=== PATIENT | male | born 1945 | race Caucasian/White ===

== ENCOUNTER 2022-02-26 15:36 | Emergency (ER) | payer OTHER ==
--- NOTE | 2022-02-26 16:01 | RAD REPORT ---
EXAM DESCRIPTION: CT - Ct Stroke Brain Wo Cont - 02/26/2022 3:54 pm CLINICAL HISTORY: posible stroke COMPARISON: No comparisons TECHNIQUE: All CT scans are performed using dose optimization technique as appropriate and may inclu de automated exposure control or mA/KV adjustment according to patient size. FINDINGS: No intracranial hemorrhage, hydrocephalus or extra-axial fluid collection.No areas of brai n edema or evidence of midline shift. Bilateral maxillary sinus thickening. Ethmoid air cell thickening. The calvarium is intact. IMPRESSION: No acute intracranial abnormality. Conveyed to Dr. Small by Dr. Pena at 1554 on 02/26/22
[2022-02-26 16:18] LABS: Hematocrit 34.4 % (39.6-49.0); Lymphocytes % 22.5 % (15.3-44.8); MCV 92.3 fL (80-100); MPV 7.1 fL (7.6-11.3); RBC Red Blood Cell Count 3.73 M/uL (4.33-5.43)
[2022-02-26 16:19] LABS: Protime INR 0.95
[2022-02-26] MEDS ORDERED: FAMOTIDINE 20 MG/2 ML VIAL IV ONE (16:25)
[2022-02-26] MEDS ORDERED: NA CHLORIDE 0.9% 1,000 ML ONE (16:25)
[2022-02-26] MEDS ORDERED: TENECTEPLASE 50 MG/10 ML VIAL IV ONE (16:25)
[2022-02-26] MEDS ORDERED: FOLIC ACID 5 MG/ML VIAL ONE (16:26)
[2022-02-26 16:35] LABS: ALT/SGPT 29 U/L (12-78); AST/SGOT 16 U/L (15-37); Albumin 3.1 g/dL (3.4-5.0); Alkaline Phosphatase 48 U/L (45-117); BUN Blood Urea Nitrogen 15 mg/dL (7-18); Bicarbonate 26 mmol/L (21-32); Bilirubin Total 0.3 mg/dL (0.2-1.0); Glomerular Filtration Rate 88 ml/min (=/>90); Glucose Level 115 mg/dL (74-106); Magnesium 2.1 mg/dL (1.8-2.4); NT PRO-BNP 90 pg/mL (<450); Potassium 3.8 mmol/L (3.5-5.1); Protein, Total 6.2 g/dL (6.4-8.2); Sodium Level 138 mmol/L (136-145); Troponin High Sensitivity 10.9 pg/mL (<58.9)
[2022-02-26 16:41] LABS: Bilirubin Direct < 0.1 mg/dL (0-0.2)
--- NOTE | 2022-02-26 16:48 | ER ---
Nurse's Notes [facility] Name: Osmany Corey Age: 76 yrs Sex: Male : 1945 Arrival Date: 02/26/2022 Time: 15:40 Bed 8 Private MD: Diagnosis: Cerebral infarction, unspecified;Aphasia Presentation: 02/26 15:48 Chief complaint: Patient states: about 3pm today the left side of my face and lips felt tw2 different. i felt like i couldn't wink at first and that i was going to drool but i didnt. Coronavirus screen: At this time, the client does not indicate any symptoms associated with coronavirus-19. Ebola Screen: Patient denies travel to an Ebola-affected area in the 21 days before illness onset. No acute neurological deficit is noted. Pre-hospital glucose is not applicable to this patient. Initial Sepsis Screen: Does the patient meet any 2 criteria? No. Patient's initial sepsis screen is negative. Does the patient have a suspected source of infection? No. Patient's initial sepsis screen is negative. Risk Assessment: Do you want to hurt yourself or someone else? Patient reports no desire to harm self or others. Note pt taken to cat scan at this time via w/c with TEODORO Brown. Onset of symptoms was February 26, 2022. 15:48 Acuity: JOSIE 2 tw2 15:48 Method Of Arrival: Ambulatory tw2 Triage Assessment: 15:48 The onset of the patients symptoms was February 26, 2022 at 15:00. General: Appears in tw2 no apparent distress. Behavior is calm, cooperative, appropriate for age. Neuro: Reports numbness in left side of face since 1500 today. 15:48 Musculoskeletal:. tw2 15:50 Pain: Denies pain. tw2 15:51 Neuro:. tw2 Stroke Activation: Symptom onset < 3 hours Physician: Stroke Attending; Name: ; Notified At: ; Arrived At: Physician: Chief Stroke Resident; Name: ; Notified At: ; Arrived At: Physician: Stroke Resident; Name: ; Notified At: ; Arrived At: Physician: ED Attending; Name: ; Notified At: ; Arrived At: Physician: ED Resident; Name: ; Notified At: ; Arrived At: Historical: - Allergies: 15:45 No Known Allergies; tw2 - PMHx: 15:53 back pain; shoulder pain; tw2 - PSHx: 15:53 Tonsillectomy; tw2 - Immunization history:: Client reports having NOT received the Covid vaccine. - Social history:: Smoking status: Patient denies any tobacco usage or history of. - Family history:: not pertinent. Screenin:53 Abuse screen: Denies threats or abuse. Nutritional screening: No deficits noted. tw2 Tuberculosis screening: No symptoms or risk factors identified. Fall Risk Secondary diagnosis (15 points) impaired mobility. 15:59 Patient has been NPO before screening. The patient is alert, able to follow commands. tw2 The patient does not exhibit slurred or garbled speech The patient is not exhibiting difficulty speaking. The patient does not exhibit difficulty understanding words. The patient is able to swallow own secretions with no drooling or need for suction. Patient tolerated one teaspoon of water. No drooling, immediate coughing, gurgling, or clearing of the throat was noted. The patient tolerated 90mL of water. No drooling, immediate coughing, gurgling, or clearing of the throat was noted. The patient passed the bedside swallow screening. Oral medications may be given as ordered. Contact Physician for further diet orders. Provider notified of bedside swallow screening results: Melquiaeds Small MD. Assessment: 15:45 Reassessment: pt taken to CT. mb9 15:45 General: Appears in no apparent distress. comfortable, Behavior is calm, cooperative, mb9 appropriate for age. Pain: Denies pain. Neuro: Level of Consciousness is awake, alert, obeys commands, Oriented to person, place, time, situation, Appropriate for age Reservations Clerk are equal bilaterally Full function Gait is unsteady, Speech is normal, Facial symmetry appears normal, Pupils are PERRLA, Intact Reports numbness in face and left arm slurred speech. 15:45 Cardiovascular: Heart tones S1 S2 present Capillary refill < 3 seconds Pulses are all mb9 present. Rhythm is sinus bradycardia. Cardiovascular: Rhythm is regular. Respiratory: Respiratory: Airway is patent Respiratory effort is even, unlabored, Respiratory pattern is regular, symmetrical, Breath sounds are clear bilaterally. GI: Abdomen is flat, Bowel sounds present X 4 quads. : No signs and/or symptoms were reported regarding the genitourinary system. EENT: No signs and/or symptoms were reported regarding the EENT system. Derm: Skin is pink, warm \T\ dry. Musculoskeletal: Range of motion: intact in all extremities. 15:51 VAN Scoring: Arm Drift: Patients demonstrates NO arm weakness. Patient is VAN Negative. tw2 Visual Disturbance: No visual disturbance noted. 15:53 Musculoskeletal:. tw2 15:55 Neuro: Level of Consciousness is awake, alert, obeys commands, Oriented to person, mb9 place, time, situation, Appropriate for age Reservations Clerk are weak on left Gait is unsteady, Speech is slurred, lower face drip on left side. Pupils are PERRLA, Tingling in left arm Numbness in left arm. Cardiovascular: Heart tones S1 S2 present Pulses are all present. Rhythm is regular. Respiratory: Airway is patent Respiratory effort is even, unlabored, Respiratory pattern is regular, symmetrical, Breath sounds are clear bilaterally. GI:. Derm: Skin is pink, warm \T\ dry. Musculoskeletal: Range of motion: intact in all extremities. 16:00 Patient has been NPO before screening. The patient is alert, and able to follow tw2 commands. The patient does not exhibit slurred or garbled speech. The patient is not exhibiting difficulty speaking. The patient does not exhibit difficulty understanding words. The patient is able to swallow own secretions with no drooling or need for suction. Patient tolerated one teaspoon of water. No drooling, immediate coughing, gurgling, or clearing of the throat was noted. The patient tolerated 90mL of water. No drooling, immediate coughing, gurgling, or clearing of the throat was noted. The patient passed the bedside swallow screening. Oral medications may be given as ordered. Contact Physician for further diet orders. Provider notified of bedside swallow screening results: Melquiades Small MD. 16:10 TNKase (Tenecteplase) Screening: Indications: No evidence of intracranial hemorrhage or mb9 CT of head and no evidence of peripheral hemorrhage or recent CVA: Yes. 16:35 TNKase (Tenecteplase) Screening: Indications: Consent for thrombolytic therapy: Yes. mb9 16:35 Reassessment: see pt's chart for TNK consent administration, signed by patient. . aa5 17:00 Reassessment: pt taken to CT. mb9 17:22 Reassessment: pt back from CT. mb9 17:30 Reassessment: pt reports pressure behind eyes bilaterally. Notified Dr. Small of pts mb9 complaint. 17:30 General: Appears comfortable. Pain: Denies pain. Neuro: Level of Consciousness is mb9 awake, alert, obeys commands, Oriented to person, place, time, situation, Appropriate for age Reservations Clerk are equal bilaterally Full function Speech is slurred, Facial symmetry appears normal, Pupils are PERRLA, Tingling in left arm Numbness in left jaw. Cardiovascular: Heart tones S1 S2 present Rhythm is sinus bradycardia. Respiratory: Airway is patent Respiratory effort is even, unlabored, Respiratory pattern is regular, symmetrical. GI:. Derm: Skin is pink, warm \T\ dry. 17:45 Pain: Denies pain. Neuro: Level of Consciousness is awake, alert, obeys commands, mb9 Oriented to person, place, time, situation, Appropriate for age Reservations Clerk are equal bilaterally Full function Speech is slurred, Facial symmetry appears normal, Pupils are PERRLA, Intact Reports numbness in left arm. Cardiovascular: Heart tones S1 S2 present Rhythm is regular. Respiratory: Airway is patent Respiratory effort is even, unlabored, Respiratory pattern is regular, symmetrical, Breath sounds are clear bilaterally. Derm: Skin is pink, warm \T\ dry. 18:00 Pain: Denies pain. Neuro: Level of Consciousness is awake, alert, obeys commands, mb9 Oriented to person, place, time, situation, Appropriate for age Reservations Clerk are equal bilaterally Full function Speech is normal, Facial symmetry appears normal, Pupils are PERRLA, Intact Reports numbness in left arm and tingling . Cardiovascular: Rhythm is regular. Respiratory: Airway is patent Respiratory effort is even, unlabored, Respiratory pattern is regular, symmetrical. Derm: Skin is pink, warm \T\ dry. 18:15 Reassessment: pts and sister at bedside. Pain: Denies pain. Neuro: Level of mb9 Consciousness is awake, alert, obeys commands, Oriented to person, place, time, situation, Appropriate for age Reservations Clerk are equal bilaterally Full function Speech is normal, Facial symmetry appears normal, Pupils are PERRLA, Intact Reports numbness in left arm. Cardiovascular:. Cardiovascular: Heart tones S1 S2 present Rhythm is regular. Respiratory: Airway is patent Respiratory effort is even, unlabored, Respiratory pattern is regular, symmetrical. Derm: Skin is pink, warm \T\ dry. 18:30 Reassessment: pts sister and at bedside. General: Appears in no apparent distress. mb9 comfortable, Behavior is calm, cooperative, appropriate for age. Pain: Denies pain. Neuro: Level of Consciousness is awake, alert, obeys commands, Oriented to person, place, time, situation, Appropriate for age Reservations Clerk are equal bilaterally Full function Speech is normal, Facial symmetry appears normal, Pupils are PERRLA, Intact Reports numbness in left arm. Cardiovascular: Rhythm is regular. Respiratory: Airway is patent Respiratory effort is even, unlabored, Respiratory pattern is regular, symmetrical. Derm: Skin is pink, warm \T\ dry. 18:45 General: Appears in no apparent distress. comfortable, Behavior is calm, cooperative, mb9 appropriate for age. Pain: Denies pain. Neuro: Level of Consciousness is awake, alert, obeys commands, Oriented to person, place, time, situation, Appropriate for age Reservations Clerk are equal bilaterally Full function Speech is normal, Facial symmetry appears normal, Pupils are PERRLA, Intact Reports slight numbness in the left upper arm. Cardiovascular: Rhythm is regular. Respiratory: Airway is patent Respiratory effort is even, unlabored, Respiratory pattern is regular, symmetrical. Derm: Skin is pink, warm \T\ dry. 19:00 Pain: Denies pain. Neuro: Level of Consciousness is awake, alert, obeys commands, mb9 Oriented to person, place, time, situation, Appropriate for age Reservations Clerk are equal bilaterally Full function Speech is normal, Facial symmetry appears normal, Pupils are PERRLA, Intact Reports slight tingling in the left lower arm. Cardiovascular: Rhythm is regular. Respiratory: Airway is patent Respiratory effort is even, unlabored, Respiratory pattern is regular, symmetrical. Derm: Skin is pink, warm \T\ dry. Vital Signs: 15:48 BP 132 / 71; Pulse 67; Resp 17; Temp 98.2(TE); Pulse Ox 100% on R/A; Weight 81.65 kg tw2 (R); Height 5 ft. 9 in. (175.26 cm); 16:00 BP 132 / 70; Pulse 61; Resp 16; Pulse Ox 100% ; mb9 16:18 BP 147 / 79; Pulse 65; Resp 13; Pulse Ox 99% on R/A; mb9 16:36 BP 147 / 79; Pulse 60; Resp 11; Pulse Ox 100% on R/A; mb9 16:45 BP 145 / 59; Pulse 58; Resp 14; Pulse Ox 100% ; mb9 17:00 BP 149 / 75; Pulse 58; Resp 12; Pulse Ox 100% on R/A; mb9 17:30 BP 147 / 79; Pulse 77; Resp 15; Pulse Ox 100% on R/A; mb9 17:45 BP 155 / 75; Pulse 63; Resp 20; Pulse Ox 100% ; mb9 18:00 BP 165 / 80; Pulse 64; Resp 20; Pulse Ox 100% ; mb9 18:15 BP 161 / 80; Pulse 63; Resp 18; Pulse Ox 100% on R/A; mb9 18:30 BP 154 / 77; Pulse 63; Resp 15; Pulse Ox 100% ; mb9 18:45 BP 160 / 90; Pulse 63; Resp 14; Pulse Ox 100% on R/A; mb9 19:00 BP 157 / 94; Pulse 68; Pulse Ox 98% on R/A; mb9 15:48 Body Mass Index 26.58 (81.65 kg, 175.26 cm) tw2 NIH Stroke Scale Scores: 15:45 NIHSS Score: 1 mb9 15:55 NIHSS Score: 3 mb9 16:00 NIHSS Score: 3 mb9 16:36 NIHSS Score: 3 mb9 16:36 NIHSS Score: 2 carly 17:30 NIHSS Score: 2 mb9 17:45 NIHSS Score: 2 mb9 18:00 NIHSS Score: 1 mb9 18:15 NIHSS Score: 1 mb9 18:30 NIHSS Score: 1 mb9 18:45 NIHSS Score: 1 mb9 19:00 NIHSS Score: 1 mb9 ED Course: 15:40 Patient arrived in ED. ja2 15:45 Arm band placed on. tw2 15:50 Triage completed. tw2 15:52 Melquiades Small MD is Attending Physician. carly 15:55 Ct Stroke Brain Wo Cont In Process Unspecified. EDMS 15:57 Jordin Figueroa, RN is Primary Nurse. mb8 15:58 Primary Nurse role handed off by Jordin Figueroa, RN mb9 15:58 Rae Murray RN is Primary Nurse. mb9 16:00 Inserted saline lock: 20 gauge in left forearm, using aseptic technique. ,using aseptic mb9 technique. done by TEODORO Martines Blood collected. 16:12 EKG done, by ED staff, reviewed by Melquiades Small MD. mb9 16:45 attempted to initiate a transfer with [facility] Transfer center Put on hold for 30 eb minutes then hung up on. 16:48 intiated a transfer with Shirley Barba Rn from the [facility]. eb 16:52 per Norma [facility] will have to decline the transfer / they are not taking any drip eb and ships. 17:00 XRAY Chest (1 view) In Process Unspecified. EDMS 17:00 initiated at transfer with Gaye from the [facility]. eb 17:17 CT Head Angio In Process Unspecified. EDMS 17:17 CT Neck Angio In Process Unspecified. EDMS 17:17 No provider procedures requiring assistance completed. mb9 18:01 SARS RAPID Sent. mb9 18:05 administrative approval given by Gaye Moses Rn/ patient has been accepted to [facility] Stroke Unit/ Dr. Rutherford has accepted the patient in transfer/ report to to be called to [phone]. 19:23 Patient has correct armband on for positive identification. tw5 19:23 Patient transferred, IV remains in place. tw5 Administered Medications: 16:35 Drug: foLIC Acid 1 mg Route: IVPB; Site: left forearm; mb9 18:02 Follow up: Response: No adverse reaction; IV Status: Completed infusion mb9 16:35 Drug: NS 0.9% 1000 ml Route: IV; Rate: 1 bolus; Site: left forearm; mb9 18:01 Follow up: Response: No adverse reaction; IV Status: Completed infusion mb9 16:35 Drug: Pepcid (famotidine) 20 mg Route: IVP; Site: left forearm; mb9 18:01 Follow up: Response: No adverse reaction mb9 16:36 Drug: TNK FOR STROKE - Tenecteplase 0.25 mg/kg {Co-Signature: aa5 (Bobbi pope RN).} Route: IV; Rate: per protocol; Site: left forearm; 18:02 Follow up: Response: No adverse reaction mb9 18:01 Not Given (Patient Refused): Tylenol 650 mg PO once mb9 Medication: 15:53 VIS not applicable for this client. tw2 Outcome: 16:47 ER care complete, transfer ordered by MD. carroll 19:22 Transferred to [facility], Note: called report to Dina Ny in [facility] tw5 stroke unit 19:22 Condition: improved 19:22 Instructed on the need for transfer. 20:24 Transferred Note: bedside report given to [facility] 20:25 Patient left the ED. tw5 NIH Stroke Scale - NIH Stroke Score Date: 02/26/2022 Time: 15:45 Total Score = 1 1a. Level of Consciousness (LOC) - 0(Alert) 1b. Level of Consciousness (LOC) (Month \T\ Age) - 0(Both) 1c. LOC Commands (Open \T\ Closes Eyes/Ore Grader) - 0(Both) 2. Best Gaze (Lateral Gaze Paresis) - 0(Normal) 3. Visual Field Loss - 0(No visual loss) 4. Facial Palsy - 0(Normal) 5a. Left Arm: Motor (10-second hold) - 0(No drift) 5b. Right Arm: Motor (10-second hold) - 0(No drift) 6a. Left Leg: Motor (5-second hold - always test supine) - 0(No drift) 6b. Right Leg: Motor (5-second hold - always test supine) - 0(No drift) 7. Limb Ataxia (finger/nose \T\ heel/pena - test with eyes open) - 0(Absent) 8. Sensory Loss (pinprick arms/legs/face) - 1(Mild to moderate loss) 9. Best Language: Aphasia (description/naming/reading) - 0(No aphasia) 10. Dysarthria (speech clarity - read or repeat words) - 0(Normal) 11. Extinction and Inattention (visual/tactile/auditory/spatial/personal) - 0(No abnormality) Initials: mb9 NIH Stroke Scale - NIH Stroke Score Date: 02/26/2022 Time: 15:55 Total Score = 3 1a. Level of Consciousness (LOC) - 0(Alert) 1b. Level of Consciousness (LOC) (Month \T\ Age) - 0(Both) 1c. LOC Commands (Open \T\ Closes Eyes/Ore Grader) - 0(Both) 2. Best Gaze (Lateral Gaze Paresis) - 0(Normal) 3. Visual Field Loss - 0(No visual loss) 4. Facial Palsy - 1(Minor Paralysis) 5a. Left Arm: Motor (10-second hold) - 0(No drift) 5b. Right Arm: Motor (10-second hold) - 0(No drift) 6a. Left Leg: Motor (5-second hold - always test supine) - 0(No drift) 6b. Right Leg: Motor (5-second hold - always test supine) - 0(No drift) 7. Limb Ataxia (finger/nose \T\ heel/pena - test with eyes open) - 0(Absent) 8. Sensory Loss (pinprick arms/legs/face) - 1(Mild to moderate loss) 9. Best Language: Aphasia (description/naming/reading) - 0(No aphasia) 10. Dysarthria (speech clarity - read or repeat words) - 1(Mild to Moderate) 11. Extinction and Inattention (visual/tactile/auditory/spatial/personal) - 0(No abnormality) Initials: mb9 NIH Stroke Scale - NIH Stroke Score Date: 02/26/2022 Time: 16:00 Total Score = 3 1a. Level of Consciousness (LOC) - 0(Alert) 1b. Level of Consciousness (LOC) (Month \T\ Age) - 0(Both) 1c. LOC Commands (Open \T\ Closes Eyes/Ore Grader) - 0(Both) 2. Best Gaze (Lateral Gaze Paresis) - 0(Normal) 3. Visual Field Loss - 0(No visual loss) 4. Facial Palsy - 1(Minor Paralysis) 5a. Left Arm: Motor (10-second hold) - 0(No drift) 5b. Right Arm: Motor (10-second hold) - 0(No drift) 6a. Left Leg: Motor (5-second hold - always test supine) - 0(No drift) 6b. Right Leg: Motor (5-second hold - always test supine) - 0(No drift) 7. Limb Ataxia (finger/nose \T\ heel/pena - test with eyes open) - 0(Absent) 8. Sensory Loss (pinprick arms/legs/face) - 1(Mild to moderate loss) 9. Best Language: Aphasia (description/naming/reading) - 0(No aphasia) 10. Dysarthria (speech clarity - read or repeat words) - 1(Mild to Moderate) 11. Extinction and Inattention (visual/tactile/auditory/spatial/personal) - 0(No abnormality) Initials: mb9 NIH Stroke Scale - NIH Stroke Score Date: 02/26/2022 Time: 16:36 Total Score = 3 1a. Level of Consciousness (LOC) - 0(Alert) 1b. Level of Consciousness (LOC) (Month \T\ Age) - 0(Both) 1c. LOC Commands (Open \T\ Closes Eyes/Ore Grader) - 0(Both) 2. Best Gaze (Lateral Gaze Paresis) - 0(Normal) 3. Visual Field Loss - 0(No visual loss) 4. Facial Palsy - 1(Minor Paralysis) 5a. Left Arm: Motor (10-second hold) - 0(No drift) 5b. Right Arm: Motor (10-second hold) - 0(No drift) 6a. Left Leg: Motor (5-second hold - always test supine) - 0(No drift) 6b. Right Leg: Motor (5-second hold - always test supine) - 0(No drift) 7. Limb Ataxia (finger/nose \T\ heel/pena - test with eyes open) - 0(Absent) 8. Sensory Loss (pinprick arms/legs/face) - 1(Mild to moderate loss) 9. Best Language: Aphasia (description/naming/reading) - 0(No aphasia) 10. Dysarthria (speech clarity - read or repeat words) - 1(Mild to Moderate) 11. Extinction and Inattention (visual/tactile/auditory/spatial/personal) - 0(No abnormality) Initials: mb9 NIH Stroke Scale - NIH Stroke Score Date: 02/26/2022 Time: 16:36 Total Score = 2 1a. Level of Consciousness (LOC) - 0(Alert) 1b. Level of Consciousness (LOC) (Month \T\ Age) - 0(Both) 1c. LOC Commands (Open \T\ Closes Eyes/Ore Grader) - 0(Both) 2. Best Gaze (Lateral Gaze Paresis) - 0(Normal) 3. Visual Field Loss - 0(No visual loss) 4. Facial Palsy - 0(Normal) 5a. Left Arm: Motor (10-second hold) - 0(No drift) 5b. Right Arm: Motor (10-second hold) - 0(No drift) 6a. Left Leg: Motor (5-second hold - always test supine) - 0(No drift) 6b. Right Leg: Motor (5-second hold - always test supine) - 0(No drift) 7. Limb Ataxia (finger/nose \T\ heel/pena - test with eyes open) - 0(Absent) 8. Sensory Loss (pinprick arms/legs/face) - 1(Mild to moderate loss) 9. Best Language: Aphasia (description/naming/reading) - 1(Mild to moderate aphasia) 10. Dysarthria (speech clarity - read or repeat words) - 0(Normal) 11. Extinction and Inattention (visual/tactile/auditory/spatial/personal) - 0(No abnormality) Initials: carly NIH Stroke Scale - NIH Stroke Score Date: 02/26/2022 Time: 17:30 Total Score = 2 1a. Level of Consciousness (LOC) - 0(Alert) 1b. Level of Consciousness (LOC) (Month \T\ Age) - 0(Both) 1c. LOC Commands (Open \T\ Closes Eyes/Ore Grader) - 0(Both) 2. Best Gaze (Lateral Gaze Paresis) - 0(Normal) 3. Visual Field Loss - 0(No visual loss) 4. Facial Palsy - 0(Normal) 5a. Left Arm: Motor (10-second hold) - 0(No drift) 5b. Right Arm: Motor (10-second hold) - 0(No drift) 6a. Left Leg: Motor (5-second hold - always test supine) - 0(No drift) 6b. Right Leg: Motor (5-second hold - always test supine) - 0(No drift) 7. Limb Ataxia (finger/nose \T\ heel/pena - test with eyes open) - 0(Absent) 8. Sensory Loss (pinprick arms/legs/face) - 1(Mild to moderate loss) 9. Best Language: Aphasia (description/naming/reading) - 0(No aphasia) 10. Dysarthria (speech clarity - read or repeat words) - 1(Mild to Moderate) 11. Extinction and Inattention (visual/tactile/auditory/spatial/personal) - 0(No abnormality) Initials: mb9 NIH Stroke Scale - NIH Stroke Score Date: 02/26/2022 Time: 17:45 Total Score = 2 1a. Level of Consciousness (LOC) - 0(Alert) 1b. Level of Consciousness (LOC) (Month \T\ Age) - 0(Both) 1c. LOC Commands (Open \T\ Closes Eyes/Ore Grader) - 0(Both) 2. Best Gaze (Lateral Gaze Paresis) - 0(Normal) 3. Visual Field Loss - 0(No visual loss) 4. Facial Palsy - 0(Normal) 5a. Left Arm: Motor (10-second hold) - 0(No drift) 5b. Right Arm: Motor (10-second hold) - 0(No drift) 6a. Left Leg: Motor (5-second hold - always test supine) - 0(No drift) 6b. Right Leg: Motor (5-second hold - always test supine) - 0(No drift) 7. Limb Ataxia (finger/nose \T\ heel/pena - test with eyes open) - 0(Absent) 8. Sensory Loss (pinprick arms/legs/face) - 1(Mild to moderate loss) 9. Best Language: Aphasia (description/naming/reading) - 0(No aphasia) 10. Dysarthria (speech clarity - read or repeat words) - 1(Mild to Moderate) 11. Extinction and Inattention (visual/tactile/auditory/spatial/personal) - 0(No abnormality) Initials: mb9 NIH Stroke Scale - NIH Stroke Score Date: 02/26/2022 Time: 18:00 Total Score = 1 1a. Level of Consciousness (LOC) - 0(Alert) 1b. Level of Consciousness (LOC) (Month \T\ Age) - 0(Both) 1c. LOC Commands (Open \T\ Closes Eyes/Ore Grader) - 0(Both) 2. Best Gaze (Lateral Gaze Paresis) - 0(Normal) 3. Visual Field Loss - 0(No visual loss) 4. Facial Palsy - 0(Normal) 5a. Left Arm: Motor (10-second hold) - 0(No drift) 5b. Right Arm: Motor (10-second hold) - 0(No drift) 6a. Left Leg: Motor (5-second hold - always test supine) - 0(No drift) 6b. Right Leg: Motor (5-second hold - always test supine) - 0(No drift) 7. Limb Ataxia (finger/nose \T\ heel/pena - test with eyes open) - 0(Absent) 8. Sensory Loss (pinprick arms/legs/face) - 1(Mild to moderate loss) 9. Best Language: Aphasia (description/naming/reading) - 0(No aphasia) 10. Dysarthria (speech clarity - read or repeat words) - 0(Normal) 11. Extinction and Inattention (visual/tactile/auditory/spatial/personal) - 0(No abnormality) Initials: [facility] NIH Stroke Scale - NIH Stroke Score Date: 02/26/2022 Time: 18:15 Total Score = 1 1a. Level of Consciousness (LOC) - 0(Alert) 1b. Level of Consciousness (LOC) (Month \T\ Age) - 0(Both) 1c. LOC Commands (Open \T\ Closes Eyes/Ore Grader) - 0(Both) 2. Best Gaze (Lateral Gaze Paresis) - 0(Normal) 3. Visual Field Loss - 0(No visual loss) 4. Facial Palsy - 0(Normal) 5a. Left Arm: Motor (10-second hold) - 0(No drift) 5b. Right Arm: Motor (10-second hold) - 0(No drift) 6a. Left Leg: Motor (5-second hold - always test supine) - 0(No drift) 6b. Right Leg: Motor (5-second hold - always test supine) - 0(No drift) 7. Limb Ataxia (finger/nose \T\ heel/pena - test with eyes open) - 0(Absent) 8. Sensory Loss (pinprick arms/legs/face) - 1(Mild to moderate loss) 9. Best Language: Aphasia (description/naming/reading) - 0(No aphasia) 10. Dysarthria (speech clarity - read or repeat words) - 0(Normal) 11. Extinction and Inattention (visual/tactile/auditory/spatial/personal) - 0(No abnormality) Initials: [facility] NIH Stroke Scale - NIH Stroke Score Date: 02/26/2022 Time: 18:30 Total Score = 1 1a. Level of Consciousness (LOC) - 0(Alert) 1b. Level of Consciousness (LOC) (Month \T\ Age) - 0(Both) 1c. LOC Commands (Open \T\ Closes Eyes/Ore Grader) - 0(Both) 2. Best Gaze (Lateral Gaze Paresis) - 0(Normal) 3. Visual Field Loss - 0(No visual loss) 4. Facial Palsy - 0(Normal) 5a. Left Arm: Motor (10-second hold) - 0(No drift) 5b. Right Arm: Motor (10-second hold) - 0(No drift) 6a. Left Leg: Motor (5-second hold - always test supine) - 0(No drift) 6b. Right Leg: Motor (5-second hold - always test supine) - 0(No drift) 7. Limb Ataxia (finger/nose \T\ heel/pena - test with eyes open) - 0(Absent) 8. Sensory Loss (pinprick arms/legs/face) - 1(Mild to moderate loss) 9. Best Language: Aphasia (description/naming/reading) - 0(No aphasia) 10. Dysarthria (speech clarity - read or repeat words) - 0(Normal) 11. Extinction and Inattention (visual/tactile/auditory/spatial/personal) - 0(No abnormality) Initials: mb9 NIH Stroke Scale - NIH Stroke Score Date: 02/26/2022 Time: 18:45 Total Score = 1 1a. Level of Consciousness (LOC) - 0(Alert) 1b. Level of Consciousness (LOC) (Month \T\ Age) - 0(Both) 1c. LOC Commands (Open \T\ Closes Eyes/Ore Grader) - 0(Both) 2. Best Gaze (Lateral Gaze Paresis) - 0(Normal) 3. Visual Field Loss - 0(No visual loss) 4. Facial Palsy - 0(Normal) 5a. Left Arm: Motor (10-second hold) - 0(No drift) 5b. Right Arm: Motor (10-second hold) - 0(No drift) 6a. Left Leg: Motor (5-second hold - always test supine) - 0(No drift) 6b. Right Leg: Motor (5-second hold - always test supine) - 0(No drift) 7. Limb Ataxia (finger/nose \T\ heel/pena - test with eyes open) - 0(Absent) 8. Sensory Loss (pinprick arms/legs/face) - 1(Mild to moderate loss) 9. Best Language: Aphasia (description/naming/reading) - 0(No aphasia) 10. Dysarthria (speech clarity - read or repeat words) - 0(Normal) 11. Extinction and Inattention (visual/tactile/auditory/spatial/personal) - 0(No abnormality) Initials: mb9 NIH Stroke Scale - NIH Stroke Score Date: 02/26/2022 Time: 19:00 Total Score = 1 1a. Level of Consciousness (LOC) - 0(Alert) 1b. Level of Consciousness (LOC) (Month \T\ Age) - 0(Both) 1c. LOC Commands (Open \T\ Closes Eyes/Ore Grader) - 0(Both) 2. Best Gaze (Lateral Gaze Paresis) - 0(Normal) 3. Visual Field Loss - 0(No visual loss) 4. Facial Palsy - 0(Normal) 5a. Left Arm: Motor (10-second hold) - 0(No drift) 5b. Right Arm: Motor (10-second hold) - 0(No drift) 6a. Left Leg: Motor (5-second hold - always test supine) - 0(No drift) 6b. Right Leg: Motor (5-second hold - always test supine) - 0(No drift) 7. Limb Ataxia (finger/nose \T\ heel/pena - test with eyes open) - 0(Absent) 8. Sensory Loss (pinprick arms/legs/face) - 1(Mild to moderate loss) 9. Best Language: Aphasia (description/naming/reading) - 0(No aphasia) 10. Dysarthria (speech clarity - read or repeat words) - 0(Normal) 11. Extinction and Inattention (visual/tactile/auditory/spatial/personal) - 0(No abnormality) Initials: mb9 Signatures: Dispatcher [employer] EDMS eMlquiades Small MD MD cha Calderon, Audri, RN RN aa5 Josie Rodrigez RN RN tw2 Melodie Cortez Jessica Carolin Tom tw5 Jordin Figueroa RN RN mb8 Rae Murray RN RN mb9 Bobbi Lozano RN aa5 Corrections: (The following items were deleted from the chart) 15:45 15:45 Allergies: Aspirin; tw2 tw2 15:52 15:50 The onset of the patients symptoms was February 26, 2022 at 15:00 tw2 tw2 15:52 15:50 General: Appears in no apparent distress. Behavior is calm, cooperative, tw2 appropriate for age, tw2 15:52 15:50 Neuro: Reports numbness in left side of face since 1500 today tw2 tw2 17:12 16:48 attempted to initiate a transfer with [facility] Transfer center Put on eb hold for 30 minutes then hung up on. eb 17:42 17:36 Pain: Denies pain. mb9 mb9
--- NOTE | 2022-02-26 16:48 | EDPHYS ---
Physician Documentation [facility] Name: Osmany Corey Age: 76 yrs Sex: Male : 1945 Arrival Date: 02/26/2022 Time: 15:40 Bed 8 Private MD: ED Physician Melquiades Small HPI: 02/26 16:36 This 76 yrs old Male presents to ER via Ambulatory with complaints of Slurred carly Speech, Numbness Of Face. 16:36 The patient presents to the emergency department with weakness of the left side of the carly face, that is mild, a speech or higher order brain function problem, aphasia, that is mild, paresthesias of the left upper extremity, that is mild. Onset: The symptoms/episode began/occurred at 15:00. Context: occurred at home, occurred while the patient was sitting. Associated signs and symptoms: Pertinent positives: paresthesias, APHASIA, LEFT ARM NUMBNESS. Severity of symptoms: At their worst the symptoms were moderate just prior to arrival, in the emergency department the symptoms have improved mildly. Patient's baseline: Neuro: alert and fully oriented. Historical: - Allergies: 15:45 No Known Allergies; tw2 - PMHx: 15:53 back pain; shoulder pain; tw2 - PSHx: 15:53 Tonsillectomy; tw2 - Immunization history:: Client reports having NOT received the Covid vaccine. - Social history:: Smoking status: Patient denies any tobacco usage or history of. - Family history:: not pertinent. ROS: 16:36 Constitutional: Negative for fever, chills, and weight loss, Eyes: Negative for injury, carly pain, redness, and discharge, ENT: Negative for injury, pain, and discharge, Neck: Negative for injury, pain, and swelling, Cardiovascular: Negative for chest pain, palpitations, and edema, Respiratory: Negative for shortness of breath, cough, wheezing, and pleuritic chest pain, Abdomen/GI: Negative for abdominal pain, nausea, vomiting, diarrhea, and constipation, Back: Negative for injury and pain, : Negative for injury, bleeding, discharge, and swelling, MS/Extremity: Negative for injury and deformity, Skin: Negative for injury, rash, and discoloration, Psych: Negative for depression, anxiety, suicide ideation, homicidal ideation, and hallucinations, Allergy/Immunology: Negative for hives, rash, and allergies, Endocrine: Negative for neck swelling, polydipsia, polyuria, polyphagia, and marked weight changes, Hematologic/Lymphatic: Negative for swollen nodes, abnormal bleeding, and unusual bruising. 16:36 Neuro: Positive for numbness, speech changes, of the left arm, LEFT FACE WEAKNESS. Exam: 16:36 Constitutional: This is a well developed, well nourished patient who is awake, alert, carly and in no acute distress. Head/Face: Normocephalic, atraumatic. Eyes: Pupils equal round and reactive to light, extra-ocular motions intact. Lids and lashes normal. Conjunctiva and sclera are non-icteric and not injected. Cornea within normal limits. Periorbital areas with no swelling, redness, or edema. ENT: Nares patent. No nasal discharge, no septal abnormalities noted. Tympanic membranes are normal and external auditory canals are clear. Oropharynx with no redness, swelling, or masses, exudates, or evidence of obstruction, uvula midline. Mucous membranes moist. Neck: Trachea midline, no thyromegaly or masses palpated, and no cervical lymphadenopathy. Supple, full range of motion without nuchal rigidity, or vertebral point tenderness. No Meningismus. Chest/axilla: Normal chest wall appearance and motion. Nontender with no deformity. No lesions are appreciated. Cardiovascular: Regular rate and rhythm with a normal S1 and S2. No gallops, murmurs, or rubs. Normal PMI, no JVD. No pulse deficits. Respiratory: Lungs have equal breath sounds bilaterally, clear to auscultation and percussion. No rales, rhonchi or wheezes noted. No increased work of breathing, no retractions or nasal flaring. Abdomen/GI: Soft, non-tender, with normal bowel sounds. No distension or tympany. No guarding or rebound. No evidence of tenderness throughout. Back: No spinal tenderness. No costovertebral tenderness. Full range of motion. Male : Normal genitalia with no discharge or lesions. Skin: Warm, dry with normal turgor. Normal color with no rashes, no lesions, and no evidence of cellulitis. MS/ Extremity: Pulses equal, no cyanosis. Neurovascular intact. Full, normal range of motion. Psych: Awake, alert, with orientation to person, place and time. Behavior, mood, and affect are within normal limits. 16:36 Neuro: Orientation: is normal, appropriate for stated age, no acute changes, Mentation: is normal, appropriate for stated age, Memory: is normal, appropriate for stated age, no acute changes, Cranial nerves: Decreased sensation on left cheek and left jaw, Cerebellar function: is grossly normal, is grossly normal based on the patient's age, no acute changes, Motor: strength is normal, strength is 5/5 in all extremities, Sensation: numbness, that is mild, that is moderate, of the face and left arm, Gait: not tested. Babinski testing is normal, seizure activity, is not displayed by the patient. 16:47 ECG was reviewed by the Attending Physician. carly Vital Signs: 15:48 BP 132 / 71; Pulse 67; Resp 17; Temp 98.2(TE); Pulse Ox 100% on R/A; Weight 81.65 kg tw2 (R); Height 5 ft. 9 in. (175.26 cm); 16:00 BP 132 / 70; Pulse 61; Resp 16; Pulse Ox 100% ; mb9 16:18 BP 147 / 79; Pulse 65; Resp 13; Pulse Ox 99% on R/A; mb9 16:36 BP 147 / 79; Pulse 60; Resp 11; Pulse Ox 100% on R/A; mb9 16:45 BP 145 / 59; Pulse 58; Resp 14; Pulse Ox 100% ; mb9 17:00 BP 149 / 75; Pulse 58; Resp 12; Pulse Ox 100% on R/A; mb9 17:30 BP 147 / 79; Pulse 77; Resp 15; Pulse Ox 100% on R/A; mb9 17:45 BP 155 / 75; Pulse 63; Resp 20; Pulse Ox 100% ; mb9 18:00 BP 165 / 80; Pulse 64; Resp 20; Pulse Ox 100% ; mb9 18:15 BP 161 / 80; Pulse 63; Resp 18; Pulse Ox 100% on R/A; mb9 18:30 BP 154 / 77; Pulse 63; Resp 15; Pulse Ox 100% ; mb9 18:45 BP 160 / 90; Pulse 63; Resp 14; Pulse Ox 100% on R/A; mb9 19:00 BP 157 / 94; Pulse 68; Pulse Ox 98% on R/A; mb9 15:48 Body Mass Index 26.58 (81.65 kg, 175.26 cm) tw2 NIH Stroke Scale Scores: 15:45 NIHSS Score: 1 mb9 15:55 NIHSS Score: 3 mb9 16:00 NIHSS Score: 3 mb9 16:36 NIHSS Score: 3 mb9 16:36 NIHSS Score: 2 carly 17:30 NIHSS Score: 2 mb9 17:45 NIHSS Score: 2 mb9 18:00 NIHSS Score: 1 mb9 18:15 NIHSS Score: 1 mb9 18:30 NIHSS Score: 1 mb9 18:45 NIHSS Score: 1 mb9 19:00 NIHSS Score: 1 mb9 MDM: 15:52 Patient medically screened. carly 17:55 Data reviewed: vital signs, nurses notes, lab test result(s), EKG, radiologic studies, carly CT scan, plain films. Data interpreted: nurse monitoring: rate is 58 beats/min, rhythm is regular, Pulse oximetry: on room air is 100 %. Test interpretation: by ED physician or midlevel provider: ECG, plain radiologic studies. Counseling: I had a detailed discussion with the patient and/or guardian regarding: the historical points, exam findings, and any diagnostic results supporting the discharge/admit diagnosis, the presence of at least one elevated blood pressure reading (>120/80) during this emergency department visit, lab results, radiology results, the need to transfer to another facility, for higher level of care, [facility] the required specialist. 02/26 15:55 Order name: Basic Metabolic Panel; Complete Time: 17:57 [facility] 02/26 15:55 Order name: CBC with Diff; Complete Time: 17:57 c[facility] 02/26 15:55 Order name: LFT's; Complete Time: 17:57 carly 02/26 15:55 Order name: Magnesium; Complete Time: 17:57 [facility] 02/26 15:55 Order name: NT PRO-BNP; Complete Time: 17:57 carly 02/26 15:55 Order name: PT-INR; Complete Time: 17:57 carly 02/26 15:55 Order name: Ct Stroke Brain Wo Cont; Complete Time: 17:57 EDMS 02/26 15:55 Order name: Troponin HS; Complete Time: 17:57 [facility] 02/26 15:55 Order name: XRAY Chest (1 view); Complete Time: 17:57 [facility] 02/26 15:55 Order name: CT Head Angio; Complete Time: 17:57 [facility] 02/26 16:17 Order name: Glucose, Ancillary Testing; Complete Time: 17:57 EDMS 02/26 17:03 Order name: SARS RAPID eb 02/26 19:16 Order name: Urine Dipstick-Ancillary EDTX 02/26 15:55 Order name: EKG; Complete Time: 15:56 [facility] 02/26 15:55 Order name: Cardiac monitoring; Complete Time: 16:39 [facility] 02/26 15:55 Order name: EKG - Nurse/Tech; Complete Time: 16:39 [facility] 02/26 15:55 Order name: IV Saline Lock; Complete Time: 16:05 [facility] 02/26 15:55 Order name: Labs collected and sent; Complete Time: 16:05 [facility] 02/26 15:55 Order name: O2 Per Protocol; Complete Time: 16:08 [facility] 02/26 15:55 Order name: O2 Sat Monitoring; Complete Time: 16:09 [facility] 02/26 15:55 Order name: Urine Dipstick-Ancillary (obtain specimen); Complete Time: 19:19 [facility] 02/26 15:55 Order name: CT Neck Angio; Complete Time: 17:57 carly EC:47 Rate is 68 beats/min. Rhythm is regular. QRS [place] is Normal. GA interval is normal. QRS carly interval is normal. QT interval is normal. No Q waves. T waves are Normal. No ST changes noted. Clinical impression: NSR w/ Non-specific ST/T Changes and No evidence of ischemia. Interpreted by me. Reviewed by me. Administered Medications: 16:35 Drug: foLIC Acid 1 mg Route: IVPB; Site: left forearm; mb9 18:02 Follow up: Response: No adverse reaction; IV Status: Completed infusion mb9 16:35 Drug: NS 0.9% 1000 ml Route: IV; Rate: 1 bolus; Site: left forearm; mb9 18:01 Follow up: Response: No adverse reaction; IV Status: Completed infusion mb9 16:35 Drug: Pepcid (famotidine) 20 mg Route: IVP; Site: left forearm; mb9 18:01 Follow up: Response: No adverse reaction mb9 16:36 Drug: TNK FOR STROKE - Tenecteplase 0.25 mg/kg {Co-Signature: aa5 (Bobbi cornelius9 RN).} Route: IV; Rate: per protocol; Site: left forearm; 18:02 Follow up: Response: No adverse reaction mb9 18:01 Not Given (Patient Refused): Tylenol 650 mg PO once mb9 Disposition Summary: 02/26/22 16:47 Transfer Ordered Reason: Higher level of care carly Condition: Fair carly Problem: new carly Symptoms: have improved carly Transfer Location: [facility](02/26/22 17:54) carly Accepting Physician: SARINA SANTIAGO NEURO(02/26/22 20:25) tw5 Diagnosis - Cerebral infarction, unspecified carly - Aphasia carly Forms: - Medication Reconciliation Form carly - SBAR form carly NIH Stroke Scale - NIH Stroke Score Date: 02/26/2022 Time: 15:45 Total Score = 1 1a. Level of Consciousness (LOC) - 0(Alert) 1b. Level of Consciousness (LOC) (Month \T\ Age) - 0(Both) 1c. LOC Commands (Open \T\ Closes Eyes/Tub Rider) - 0(Both) 2. Best Gaze (Lateral Gaze Paresis) - 0(Normal) 3. Visual Field Loss - 0(No visual loss) 4. Facial Palsy - 0(Normal) 5a. Left Arm: Motor (10-second hold) - 0(No drift) 5b. Right Arm: Motor (10-second hold) - 0(No drift) 6a. Left Leg: Motor (5-second hold - always test supine) - 0(No drift) 6b. Right Leg: Motor (5-second hold - always test supine) - 0(No drift) 7. Limb Ataxia (finger/nose \T\ heel/pena - test with eyes open) - 0(Absent) 8. Sensory Loss (pinprick arms/legs/face) - 1(Mild to moderate loss) 9. Best Language: Aphasia (description/naming/reading) - 0(No aphasia) 10. Dysarthria (speech clarity - read or repeat words) - 0(Normal) 11. Extinction and Inattention (visual/tactile/auditory/spatial/personal) - 0(No abnormality) Initials: mb9 NIH Stroke Scale - NIH Stroke Score Date: 02/26/2022 Time: 15:55 Total Score = 3 1a. Level of Consciousness (LOC) - 0(Alert) 1b. Level of Consciousness (LOC) (Month \T\ Age) - 0(Both) 1c. LOC Commands (Open \T\ Closes Eyes/Tub Rider) - 0(Both) 2. Best Gaze (Lateral Gaze Paresis) - 0(Normal) 3. Visual Field Loss - 0(No visual loss) 4. Facial Palsy - 1(Minor Paralysis) 5a. Left Arm: Motor (10-second hold) - 0(No drift) 5b. Right Arm: Motor (10-second hold) - 0(No drift) 6a. Left Leg: Motor (5-second hold - always test supine) - 0(No drift) 6b. Right Leg: Motor (5-second hold - always test supine) - 0(No drift) 7. Limb Ataxia (finger/nose \T\ heel/pena - test with eyes open) - 0(Absent) 8. Sensory Loss (pinprick arms/legs/face) - 1(Mild to moderate loss) 9. Best Language: Aphasia (description/naming/reading) - 0(No aphasia) 10. Dysarthria (speech clarity - read or repeat words) - 1(Mild to Moderate) 11. Extinction and Inattention (visual/tactile/auditory/spatial/personal) - 0(No abnormality) Initials: mb9 NIH Stroke Scale - NIH Stroke Score Date: 02/26/2022 Time: 16:00 Total Score = 3 1a. Level of Consciousness (LOC) - 0(Alert) 1b. Level of Consciousness (LOC) (Month \T\ Age) - 0(Both) 1c. LOC Commands (Open \T\ Closes Eyes/Tub Rider) - 0(Both) 2. Best Gaze (Lateral Gaze Paresis) - 0(Normal) 3. Visual Field Loss - 0(No visual loss) 4. Facial Palsy - 1(Minor Paralysis) 5a. Left Arm: Motor (10-second hold) - 0(No drift) 5b. Right Arm: Motor (10-second hold) - 0(No drift) 6a. Left Leg: Motor (5-second hold - always test supine) - 0(No drift) 6b. Right Leg: Motor (5-second hold - always test supine) - 0(No drift) 7. Limb Ataxia (finger/nose \T\ heel/pena - test with eyes open) - 0(Absent) 8. Sensory Loss (pinprick arms/legs/face) - 1(Mild to moderate loss) 9. Best Language: Aphasia (description/naming/reading) - 0(No aphasia) 10. Dysarthria (speech clarity - read or repeat words) - 1(Mild to Moderate) 11. Extinction and Inattention (visual/tactile/auditory/spatial/personal) - 0(No abnormality) Initials: mb9 NIH Stroke Scale - NIH Stroke Score Date: 02/26/2022 Time: 16:36 Total Score = 3 1a. Level of Consciousness (LOC) - 0(Alert) 1b. Level of Consciousness (LOC) (Month \T\ Age) - 0(Both) 1c. LOC Commands (Open \T\ Closes Eyes/Tub Rider) - 0(Both) 2. Best Gaze (Lateral Gaze Paresis) - 0(Normal) 3. Visual Field Loss - 0(No visual loss) 4. Facial Palsy - 1(Minor Paralysis) 5a. Left Arm: Motor (10-second hold) - 0(No drift) 5b. Right Arm: Motor (10-second hold) - 0(No drift) 6a. Left Leg: Motor (5-second hold - always test supine) - 0(No drift) 6b. Right Leg: Motor (5-second hold - always test supine) - 0(No drift) 7. Limb Ataxia (finger/nose \T\ heel/pena - test with eyes open) - 0(Absent) 8. Sensory Loss (pinprick arms/legs/face) - 1(Mild to moderate loss) 9. Best Language: Aphasia (description/naming/reading) - 0(No aphasia) 10. Dysarthria (speech clarity - read or repeat words) - 1(Mild to Moderate) 11. Extinction and Inattention (visual/tactile/auditory/spatial/personal) - 0(No abnormality) Initials: mb9 NIH Stroke Scale - NIH Stroke Score Date: 02/26/2022 Time: 16:36 Total Score = 2 1a. Level of Consciousness (LOC) - 0(Alert) 1b. Level of Consciousness (LOC) (Month \T\ Age) - 0(Both) 1c. LOC Commands (Open \T\ Closes Eyes/Tub Rider) - 0(Both) 2. Best Gaze (Lateral Gaze Paresis) - 0(Normal) 3. Visual Field Loss - 0(No visual loss) 4. Facial Palsy - 0(Normal) 5a. Left Arm: Motor (10-second hold) - 0(No drift) 5b. Right Arm: Motor (10-second hold) - 0(No drift) 6a. Left Leg: Motor (5-second hold - always test supine) - 0(No drift) 6b. Right Leg: Motor (5-second hold - always test supine) - 0(No drift) 7. Limb Ataxia (finger/nose \T\ heel/pena - test with eyes open) - 0(Absent) 8. Sensory Loss (pinprick arms/legs/face) - 1(Mild to moderate loss) 9. Best Language: Aphasia (description/naming/reading) - 1(Mild to moderate aphasia) 10. Dysarthria (speech clarity - read or repeat words) - 0(Normal) 11. Extinction and Inattention (visual/tactile/auditory/spatial/personal) - 0(No abnormality) Initials: [facility] NIH Stroke Scale - NIH Stroke Score Date: 02/26/2022 Time: 17:30 Total Score = 2 1a. Level of Consciousness (LOC) - 0(Alert) 1b. Level of Consciousness (LOC) (Month \T\ Age) - 0(Both) 1c. LOC Commands (Open \T\ Closes Eyes/Tub Rider) - 0(Both) 2. Best Gaze (Lateral Gaze Paresis) - 0(Normal) 3. Visual Field Loss - 0(No visual loss) 4. Facial Palsy - 0(Normal) 5a. Left Arm: Motor (10-second hold) - 0(No drift) 5b. Right Arm: Motor (10-second hold) - 0(No drift) 6a. Left Leg: Motor (5-second hold - always test supine) - 0(No drift) 6b. Right Leg: Motor (5-second hold - always test supine) - 0(No drift) 7. Limb Ataxia (finger/nose \T\ heel/pena - test with eyes open) - 0(Absent) 8. Sensory Loss (pinprick arms/legs/face) - 1(Mild to moderate loss) 9. Best Language: Aphasia (description/naming/reading) - 0(No aphasia) 10. Dysarthria (speech clarity - read or repeat words) - 1(Mild to Moderate) 11. Extinction and Inattention (visual/tactile/auditory/spatial/personal) - 0(No abnormality) Initials: 9 NIH Stroke Scale - NIH Stroke Score Date: 02/26/2022 Time: 17:45 Total Score = 2 1a. Level of Consciousness (LOC) - 0(Alert) 1b. Level of Consciousness (LOC) (Month \T\ Age) - 0(Both) 1c. LOC Commands (Open \T\ Closes Eyes/Tub Rider) - 0(Both) 2. Best Gaze (Lateral Gaze Paresis) - 0(Normal) 3. Visual Field Loss - 0(No visual loss) 4. Facial Palsy - 0(Normal) 5a. Left Arm: Motor (10-second hold) - 0(No drift) 5b. Right Arm: Motor (10-second hold) - 0(No drift) 6a. Left Leg: Motor (5-second hold - always test supine) - 0(No drift) 6b. Right Leg: Motor (5-second hold - always test supine) - 0(No drift) 7. Limb Ataxia (finger/nose \T\ heel/pena - test with eyes open) - 0(Absent) 8. Sensory Loss (pinprick arms/legs/face) - 1(Mild to moderate loss) 9. Best Language: Aphasia (description/naming/reading) - 0(No aphasia) 10. Dysarthria (speech clarity - read or repeat words) - 1(Mild to Moderate) 11. Extinction and Inattention (visual/tactile/auditory/spatial/personal) - 0(No abnormality) Initials: 9 NIH Stroke Scale - NIH Stroke Score Date: 02/26/2022 Time: 18:00 Total Score = 1 1a. Level of Consciousness (LOC) - 0(Alert) 1b. Level of Consciousness (LOC) (Month \T\ Age) - 0(Both) 1c. LOC Commands (Open \T\ Closes Eyes/Tub Rider) - 0(Both) 2. Best Gaze (Lateral Gaze Paresis) - 0(Normal) 3. Visual Field Loss - 0(No visual loss) 4. Facial Palsy - 0(Normal) 5a. Left Arm: Motor (10-second hold) - 0(No drift) 5b. Right Arm: Motor (10-second hold) - 0(No drift) 6a. Left Leg: Motor (5-second hold - always test supine) - 0(No drift) 6b. Right Leg: Motor (5-second hold - always test supine) - 0(No drift) 7. Limb Ataxia (finger/nose \T\ heel/pena - test with eyes open) - 0(Absent) 8. Sensory Loss (pinprick arms/legs/face) - 1(Mild to moderate loss) 9. Best Language: Aphasia (description/naming/reading) - 0(No aphasia) 10. Dysarthria (speech clarity - read or repeat words) - 0(Normal) 11. Extinction and Inattention (visual/tactile/auditory/spatial/personal) - 0(No abnormality) Initials: [facility] NIH Stroke Scale - NIH Stroke Score Date: 02/26/2022 Time: 18:15 Total Score = 1 1a. Level of Consciousness (LOC) - 0(Alert) 1b. Level of Consciousness (LOC) (Month \T\ Age) - 0(Both) 1c. LOC Commands (Open \T\ Closes Eyes/Tub Rider) - 0(Both) 2. Best Gaze (Lateral Gaze Paresis) - 0(Normal) 3. Visual Field Loss - 0(No visual loss) 4. Facial Palsy - 0(Normal) 5a. Left Arm: Motor (10-second hold) - 0(No drift) 5b. Right Arm: Motor (10-second hold) - 0(No drift) 6a. Left Leg: Motor (5-second hold - always test supine) - 0(No drift) 6b. Right Leg: Motor (5-second hold - always test supine) - 0(No drift) 7. Limb Ataxia (finger/nose \T\ heel/pena - test with eyes open) - 0(Absent) 8. Sensory Loss (pinprick arms/legs/face) - 1(Mild to moderate loss) 9. Best Language: Aphasia (description/naming/reading) - 0(No aphasia) 10. Dysarthria (speech clarity - read or repeat words) - 0(Normal) 11. Extinction and Inattention (visual/tactile/auditory/spatial/personal) - 0(No abnormality) Initials: [facility] NIH Stroke Scale - NIH Stroke Score Date: 02/26/2022 Time: 18:30 Total Score = 1 1a. Level of Consciousness (LOC) - 0(Alert) 1b. Level of Consciousness (LOC) (Month \T\ Age) - 0(Both) 1c. LOC Commands (Open \T\ Closes Eyes/Tub Rider) - 0(Both) 2. Best Gaze (Lateral Gaze Paresis) - 0(Normal) 3. Visual Field Loss - 0(No visual loss) 4. Facial Palsy - 0(Normal) 5a. Left Arm: Motor (10-second hold) - 0(No drift) 5b. Right Arm: Motor (10-second hold) - 0(No drift) 6a. Left Leg: Motor (5-second hold - always test supine) - 0(No drift) 6b. Right Leg: Motor (5-second hold - always test supine) - 0(No drift) 7. Limb Ataxia (finger/nose \T\ heel/pena - test with eyes open) - 0(Absent) 8. Sensory Loss (pinprick arms/legs/face) - 1(Mild to moderate loss) 9. Best Language: Aphasia (description/naming/reading) - 0(No aphasia) 10. Dysarthria (speech clarity - read or repeat words) - 0(Normal) 11. Extinction and Inattention (visual/tactile/auditory/spatial/personal) - 0(No abnormality) Initials: mb9 NIH Stroke Scale - NIH Stroke Score Date: 02/26/2022 Time: 18:45 Total Score = 1 1a. Level of Consciousness (LOC) - 0(Alert) 1b. Level of Consciousness (LOC) (Month \T\ Age) - 0(Both) 1c. LOC Commands (Open \T\ Closes Eyes/Tub Rider) - 0(Both) 2. Best Gaze (Lateral Gaze Paresis) - 0(Normal) 3. Visual Field Loss - 0(No visual loss) 4. Facial Palsy - 0(Normal) 5a. Left Arm: Motor (10-second hold) - 0(No drift) 5b. Right Arm: Motor (10-second hold) - 0(No drift) 6a. Left Leg: Motor (5-second hold - always test supine) - 0(No drift) 6b. Right Leg: Motor (5-second hold - always test supine) - 0(No drift) 7. Limb Ataxia (finger/nose \T\ heel/pena - test with eyes open) - 0(Absent) 8. Sensory Loss (pinprick arms/legs/face) - 1(Mild to moderate loss) 9. Best Language: Aphasia (description/naming/reading) - 0(No aphasia) 10. Dysarthria (speech clarity - read or repeat words) - 0(Normal) 11. Extinction and Inattention (visual/tactile/auditory/spatial/personal) - 0(No abnormality) Initials: [facility] NIH Stroke Scale - NIH Stroke Score Date: 02/26/2022 Time: 19:00 Total Score = 1 1a. Level of Consciousness (LOC) - 0(Alert) 1b. Level of Consciousness (LOC) (Month \T\ Age) - 0(Both) 1c. LOC Commands (Open \T\ Closes Eyes/Tub Rider) - 0(Both) 2. Best Gaze (Lateral Gaze Paresis) - 0(Normal) 3. Visual Field Loss - 0(No visual loss) 4. Facial Palsy - 0(Normal) 5a. Left Arm: Motor (10-second hold) - 0(No drift) 5b. Right Arm: Motor (10-second hold) - 0(No drift) 6a. Left Leg: Motor (5-second hold - always test supine) - 0(No drift) 6b. Right Leg: Motor (5-second hold - always test supine) - 0(No drift) 7. Limb Ataxia (finger/nose \T\ heel/pena - test with eyes open) - 0(Absent) 8. Sensory Loss (pinprick arms/legs/face) - 1(Mild to moderate loss) 9. Best Language: Aphasia (description/naming/reading) - 0(No aphasia) 10. Dysarthria (speech clarity - read or repeat words) - 0(Normal) 11. Extinction and Inattention (visual/tactile/auditory/spatial/personal) - 0(No abnormality) Initials: [facility] Signatures: Dispatcher [employer] EDTX Melquiades Small MD MD cha Wise, Tara, RN RN tw2 Carolin Lambert tw5 Rae Murray RN RN mb9 Bobbi Lozano RN aa5 Corrections: (The following items were deleted from the chart) 15:45 15:45 Allergies: Aspirin; tw2 tw2 15:55 15:51 CT-STROKE BRAIN W/O CONTRAST ordered. [facility] EDTX 17:54 16:47 TO SADAF PEREZ cha carly 17:54 16:47 [facility] carly carly 20:25 17:54 TO JACK, NEURO carly tw5
--- NOTE | 2022-02-26 17:16 | RAD REPORT ---
EXAM DESCRIPTION: RAD - Chest Single View - 02/26/2022 4:59 pm CLINICAL HISTORY: COUGH COMPARISON: No comparisons FINDINGS: Lines: None. Lungs: No evidence of edema or pneumonia. Pleural: No significant pleural effusions or pneumothorax. Cardiac: The heart size is within normal limits. Mediastinum: Within normal limits. Bones: No acute fractures. Other: None IMPRESSION: No acute cardiopulmonary disease.
--- NOTE | 2022-02-26 17:26 | RAD REPORT ---
EXAM DESCRIPTION: CT - Neck Angio - 02/26/2022 5:16 pm CLINICAL HISTORY: Neuro deficit, acute, stroke suspected COMPARISON: No comparisons TECHNIQUE: CT angiography of the neck vessels was performed with MIPs. All CT scans are performed using dose optimization technique as appropriate and may include automated exposure control or mA/KV adjustment according to patient size. FINDINGS: A left aortic arch is identified with normal three vessel configuration of the great vesse ls. No significant flow abnormality is seen of the common carotid bilaterally. No significant stenosis is identified involving the cervical segments of both internal carotid arteri es. Normal flow is seen within both vertebral arteries. IMPRESSION: No significant flow abnormality of the neck vessels is identified.
--- NOTE | 2022-02-26 17:29 | RAD REPORT ---
EXAM DESCRIPTION: CT - Head angio - 02/26/2022 5:16 pm CLINICAL HISTORY: Neuro deficit, acute, stroke suspected COMPARISON: Ct Stroke Brain Wo Cont dated 02/26/2022 TECHNIQUE: CT angiography of the head was performed with MIPs. All CT scans are performed using dose optimization technique as appropriate and may include automated exposure control or mA/KV adjustment according to patient size. FINDINGS: Anterior circulation: No aneurysm or large vessel occlusion. No hemodynamically significant stenosis. No arteriovenous malf ormation identified. Posterior circulation: No aneurysm or large vessel occlusion. No hemodynamically significant stenosis. No arteriovenous malf ormation identified. Mucosal thickening within the maxillary sinuses. Ethmoid air cell thickening. Intracranial atheroscle rosis. IMPRESSION: No significant flow abnormality is detected.
[2022-02-26] MEDS ORDERED: ACETAMINOPHEN 325 MG TABLET ONE (17:50)
[2022-02-26 18:15] LABS: SARS-CoV-2 Antigen Rapid Res Negative (Negative)
[2022-02-26 19:15] LABS: Urine Blood Negative (Negative); Urine Glucose Negative (Negative); Urine Protein Negative (Negative); Urine pH 6.5 (5.0-7.0)
[2022-02-26 20:34] VITALS: TEMP 98.2
[2022-02-26 21:01] VITALS: BP 157/94; O2SAT 98
--- NOTE | 2022-02-27 16:09 | EKG ---
Test Date: 2022-02-26 Test Time: 16:11:43 Architectural Representative: MB MEASUREMENT RESULTS: Intervals: Rate: 68 ME: 178 QRSD: 146 QT: 442 QTc: 469 [place]: P: 88 ME: 178 QRS: 125 T: 64 INTERPRETIVE STATEMENTS: Sinus rhythm with premature supraventricular complexes Nonspecific intraventricular block Lateral infarct, age undetermined Abnormal ECG No previous ECG available for comparison Electronically Signed On 02-27-22 16:07:44 CDT by Sam Meyer
== END 2022-02-26 20:25 | disposition short-term general hospital (02) ==
LOC: ER 15:36
DX: I63.9 Cerebral infarction, unspecified (principal); R47.01 Aphasia; R29.703 NIHSS score 3; Z20.822 Contact with and (suspected) exposure to COVID-19
CPT/HCPCS: 96365; 92977; 93005; 85025; 80048; 36415; 83735; 85610; 82947; 80076; 81003; 84484; 83880; 70496; 70498; 70450; 71045; 96375; 99285; 87811; Q9967; J3101; J7030